=== PATIENT | male | born 1985 | race Two or more races ===

== ENCOUNTER 2017-03-12 00:25 | Emergency (ER) | payer OTHER ==
[~2017-03-12] VITALS: Ht 172.7 cm; Wt 81.3 kg
[2017-03-12 01:30] LABS: HEMATOCRIT 43.7 % (39.2-51.8); HEMOGLOBIN 14.6 g/dL (13.7-18.0); WHITE BLOOD COUNT 6.3 x10^3/uL (3.4-10)
[2017-03-12 01:41] LABS: ASPARTATE AMINO TRANSFERASE 17 U/L (15-37); BLOOD UREA NITROGEN 20 mg/dL (7-18)
[2017-03-12 01:58] LABS: IS PT STATUS REG ER OR PRE ER? YES
[2017-03-12] MEDS ORDERED: POTASSIUM CHLORIDE 20 MEQ TAB.ER.PRT PO ONE (02:30)
[2017-03-12] MEDS ORDERED: POTASSIUM CHLORIDE 10% 20 MEQ/15 ML UDC ONE (02:32)
[2017-03-12] MEDS ORDERED: POTASSIUM CHLORIDE 20 MEQ TAB.ER.PRT ONE (02:33)
[2017-03-12] MEDS ORDERED: MAALOX/HYOSCYAMINE/LIDOCAINE 45 ML BTL PO ONE (03:00)
[2017-03-12] MEDS ORDERED: OMNIPAQUE 350 MG/ML, 100ML BOTTLE ONE (04:23)
[2017-03-12 05:02] VITALS: BP 109/68
== END 2017-03-12 05:07 | disposition home or self-care (01) ==
LOC: ED 05:01
DX: R07.89 Other chest pain (principal)
CPT/HCPCS: 36415; 71010; 71260; 80053; 83735; 84484; 85025; 93005; 99285; Q9967

== ENCOUNTER → 2017-03-21 | Outpatient (CLI) | payer OTHER | END | disposition home or self-care (01) | LOC: CFH 14:58 → EDSTATUS 15:00 | PROVIDERS: ATTEND Internal Medicine Cardiovascular Disease | DX: I07.1 Rheumatic tricuspid insufficiency (principal); K21.9 Gastro-esophageal reflux disease without esophagitis | CPT/HCPCS: 93306 ==

== ENCOUNTER 2020-12-17 13:32 | Observation (INO) | payer OTHER ==
[~2020-12-17] VITALS: Ht 172.7 cm; Wt 78.2 kg
--- NOTE | 2020-12-17 13:57 | NUR ---
PT AMBULATED TO ROOM FROM TRIAGE. PT HAD MN WITH STENT PLACEMENT IN JULY. PT CO INTERMITTENT BURNING CP STARTING THIS MORNING. PT STATED THAT HE HAS BEEN TAKING HIS MEDICATIONS PRESCRIBED. TOOK 81MG ASA AND ANTIPLATELET MEDICATION THIS MORNING. PT DENIES SOB, N/V OR FEVER.
[2020-12-17 14:30] LABS: BASOPHILS % (AUTO) 0 % (0-1); EOSINOPHILS % (AUTO) 0 % (1-7); LYMPHOCYTES % (AUTO) 17 % (22-44); MEAN CORPUSCULAR HEMOGLOBIN 29.3 pg (27.5-34.5); MEAN CORPUSCULAR HGB CONC 34.2 g/dL (33.2-36.2); MEAN PLATELET VOLUME 7.9 fL (7.4-10.4); MONOCYTES % (AUTO) 5 % (2-9); NEUTROPHILS % (AUTO) 77 % (42-75); PLATELET COUNT 245 x10^3/uL (130-400); RED BLOOD COUNT 5.03 x10^6/uL (4.38-5.82); RED CELL DISTRIBUTION WIDTH 12.5 % (9.4-14.8)
[2020-12-17] MEDS ORDERED: ASPIRIN 81 MG TABLET CHEW PO ONE (14:30)
[2020-12-17] MEDS ORDERED: SODIUM CHLORIDE FLUSH 10ML SYR IVF ONE (14:30)
[2020-12-17 14:34] LABS: MD NO
[2020-12-17] MEDS ORDERED: ASPIRIN 81 MG TABLET CHEW ONE (14:36)
[2020-12-17 14:41] LABS: ALANINE AMINOTRANSFERASE 43 U/L (12-78); ANION GAP 6 mmol/L (5-15); CALCIUM 8.8 mg/dL (8.5-10.1); CHLORIDE 107 mmol/L (98-107); CREATININE 1.22 mg/dL (0.7-1.3)
[2020-12-17 14:45] LABS: ALKALINE PHOSPHATASE 90 U/L (45-117); TOTAL PROTEIN 7.3 g/dL (6.4-8.2); TROPONIN I < 0.015 ng/mL (0.000-0.045)
--- NOTE | 2020-12-17 15:00 | NUR ---
PT RESTING IN [place] COMFORT[place]. PT DENIES ANY CP AT THIS TIME. CALL LIGHT WITHIN REACH
--- NOTE | 2020-12-17 15:46 | NUR ---
PT RESTING IN [place] COMFORTABLY. CALL LIGHT WITHIN REACH.
[2020-12-17] MEDS ORDERED: BACLOFEN 10 MG TABLET PO PRN (16:30)
[2020-12-17] MEDS ORDERED: SODIUM CHLORIDE FLUSH 10ML SYR IVF PRN (16:30)
[2020-12-17] MEDS ORDERED: GUAIFENESIN/DM 200-20MG, 10ML UDC PO PRN (16:30)
[2020-12-17] MEDS ORDERED: ONDANSETRON ODT 4 MG PO PRN (16:30)
[2020-12-17] MEDS ORDERED: ONDANSETRON 2MG/ML, 2ML IVPush PRN (16:30)
--- NOTE | 2020-12-17 16:44 | NUR ---
PT AMBULATED TO RESTROOM. AWAITNG BED ASSIGNMENT. PT DENIES ANY PAIN.
--- NOTE | 2020-12-17 17:10 | NUR ---
attempt for report x1 rn unavailable
[2020-12-17 18:34] VITALS: BP 123/81
[2020-12-17] MEDS ORDERED: ASPI-1027 PO (20:03)
[2020-12-17] MEDS ORDERED: PRAS10TA9 PO (20:03)
[2020-12-17] MEDS ORDERED: ROSU5TAB12 PO (20:03)
[2020-12-17] MEDS ORDERED: METO-264 PO (20:03)
[2020-12-17 20:46] LABS: TROPONIN I < 0.015 ng/mL (0.000-0.045)
[2020-12-17] MEDS ORDERED: MELATONIN 5 MG TABLET PO SCH (21:00)
[2020-12-18 02:08] LABS: BASOPHILS % (AUTO) 0 % (0-1); EOSINOPHILS % (AUTO) 1 % (1-7); LYMPHOCYTES % (AUTO) 42 % (22-44); MEAN CORPUSCULAR HEMOGLOBIN 29.5 pg (27.5-34.5); MEAN CORPUSCULAR HGB CONC 34.1 g/dL (33.2-36.2); MONOCYTES % (AUTO) 6 % (2-9); NEUTROPHILS % (AUTO) 50 % (42-75); PLATELET COUNT 237 x10^3/uL (130-400); RED BLOOD COUNT 4.93 x10^6/uL (4.38-5.82); RED CELL DISTRIBUTION WIDTH 12.6 % (9.4-14.8)
[2020-12-18 02:13] LABS: MD NO
[2020-12-18 02:17] LABS: ALANINE AMINOTRANSFERASE 40 U/L (12-78); ALBUMIN 3.9 g/dL (3.4-5.0); ANION GAP 5 mmol/L (5-15); CALCIUM 9.1 mg/dL (8.5-10.1); CHLORIDE 107 mmol/L (98-107)
[2020-12-18 02:20] LABS: ALKALINE PHOSPHATASE 88 U/L (45-117); BILIRUBIN,TOTAL 2.2 mg/dL (0.2-1.0); TOTAL PROTEIN 7.1 g/dL (6.4-8.2)
[2020-12-18 02:21] LABS: TROPONIN I < 0.015 ng/mL (0.000-0.045)
[2020-12-18 03:35] VITALS: BP 115/61
[2020-12-18 06:57] VITALS: BP 113/73
[2020-12-18] MEDS ORDERED: SENNA/DOCUSATE TABLET PO SCH (09:00)
== END 2020-12-18 12:26 | disposition home or self-care (01) ==
LOC: ED 14:32 → EDIP 16:29 → INTOOBSV 16:29 → 5SO 17:48
PROVIDERS: ADMIT Family Medicine; ATTEND Internal Medicine
DX: R07.89 Other chest pain (principal); I25.110 Atherosclerotic heart disease of native coronary artery with unstable angina pectoris; I10 Essential (primary) hypertension; R73.9 Hyperglycemia, unspecified; E80.7 Disorder of bilirubin metabolism, unspecified; I25.2 Old myocardial infarction; I49.3 Ventricular premature depolarization; Z79.82 Long term (current) use of aspirin; Z79.890 Hormone replacement therapy; Z79.899 Other long term (current) drug therapy; Z95.5 Presence of coronary angioplasty implant and graft
CPT/HCPCS: 36415; 71045; 80053; 84484; 85025; 93005; 93017; 99285; G0378

== ENCOUNTER 2021-01-02 12:46 | Emergency (ER) | payer OTHER ==
[~2021-01-02] VITALS: Ht 172.7 cm; Wt 75.7 kg
[~2021-01-02 12:46] MED LIST: ASPI-1027 PO; METO-264 PO; PRAS10TA9 PO; ROSU5TAB12 PO
[2021-01-02 13:23] LABS: BASOPHILS % (AUTO) 0 % (0-1); EOSINOPHILS % (AUTO) 1 % (1-7); LYMPHOCYTES % (AUTO) 24 % (22-44); MEAN CORPUSCULAR HEMOGLOBIN 29.4 pg (27.5-34.5); MEAN CORPUSCULAR HGB CONC 33.9 g/dL (33.2-36.2); MEAN PLATELET VOLUME 7.9 fL (7.4-10.4); MONOCYTES % (AUTO) 5 % (2-9); NEUTROPHILS % (AUTO) 70 % (42-75); PLATELET COUNT 280 x10^3/uL (130-400); RED BLOOD COUNT 5.45 x10^6/uL (4.38-5.82)
[2021-01-02 13:34] LABS: ALANINE AMINOTRANSFERASE 55 U/L (12-78); ALBUMIN 4.4 g/dL (3.4-5.0); ANION GAP 7 mmol/L (5-15); CALCIUM 9.1 mg/dL (8.5-10.1); CHLORIDE 107 mmol/L (98-107); CREATININE 1.17 mg/dL (0.7-1.3)
[2021-01-02 13:45] LABS: ALKALINE PHOSPHATASE 91 U/L (45-117); TOTAL PROTEIN 8.1 g/dL (6.4-8.2); TROPONIN I < 0.015 ng/mL (0.000-0.045)
--- NOTE | 2021-01-02 14:04 | NUR ---
[facility] CLERK: PT TO ROOM FROM LOBBY
--- NOTE | 2021-01-02 14:19 | NUR ---
ERMD AT BEDSIDE FOR EVALUATION.
[2021-01-02 15:30] VITALS: BP 117/56
--- NOTE | 2021-01-02 15:44 | NUR ---
Patient given discharge instructions and they have confirmed that they understand the instructions. Patient ambulatory with steady gait. NAD, all questions answered appropriately, denies additional needs at this time. No personal belongings left in room after discharge.
== END 2021-01-02 15:45 | disposition home or self-care (01) ==
LOC: ED 14:09
DX: R42 Dizziness and giddiness (principal); R53.83 Other fatigue; F51.01 Primary insomnia; E86.0 Dehydration; R07.9 Chest pain, unspecified; R94.31 Abnormal electrocardiogram [ECG] [EKG]; I10 Essential (primary) hypertension; I25.2 Old myocardial infarction
CPT/HCPCS: 36415; 71045; 80053; 83690; 84443; 84484; 85025; 93005; 99285

== ENCOUNTER 2021-04-15 07:12 | Outpatient (CLI) | payer OTHER ==
[2021-04-15 07:54] LABS: BASOPHILS % (AUTO) 1 % (0-1); EOSINOPHILS % (AUTO) 2 % (1-7); LYMPHOCYTES % (AUTO) 38 % (22-44); MEAN CORPUSCULAR HEMOGLOBIN 29.2 pg (27.5-34.5); MEAN CORPUSCULAR HGB CONC 33.9 g/dL (33.2-36.2); MEAN PLATELET VOLUME 7.7 fL (7.4-10.4); MONOCYTES % (AUTO) 8 % (2-9); NEUTROPHILS % (AUTO) 53 % (42-75); PLATELET COUNT 280 x10^3/uL (130-400); RED BLOOD COUNT 5.36 x10^6/uL (4.38-5.82); RED CELL DISTRIBUTION WIDTH 13.2 % (9.4-14.8)
[2021-04-15 08:04] LABS: CALCIUM 9.6 mg/dL (8.5-10.1)
[2021-04-15 08:07] LABS: ALBUMIN 4.2 g/dL (3.4-5.0); ANION GAP 6 mmol/L (5-15); CALCIUM 9.6 mg/dL (8.5-10.1); CHLORIDE 106 mmol/L (98-107)
[2021-04-15 08:13] LABS: CHOL/HDL RATIO 2.5; CHOLESTEROL, TOTAL 188 mg/dL (140-239); CREATININE 1.17 mg/dL (0.7-1.3); HDL CHOL % 39 % (26-37); HDL CHOLESTEROL (DIRECT) 74 mg/dL (40-60); LDL CHOLESTEROL,CALCULATED 93 mg/dL (54-169); LDL/HDL RATIO 1.3 (0.5-3.0); TRIGLYCERIDES 106 mg/dL (50-200); VLDL CHOLESTEROL 21 mg/dL (0-25)
[2021-04-15 08:49] LABS: MICROSCOPIC NOT IND
== END 2021-04-15 23:59 | disposition home or self-care (01) ==
LOC: LAB 07:12
PROVIDERS: ATTEND Internal Medicine Nephrology
DX: I25.10 Atherosclerotic heart disease of native coronary artery without angina pectoris (principal); N17.9 Acute kidney failure, unspecified; Z79.899 Other long term (current) drug therapy
CPT/HCPCS: 36415; 80061; 80069; 81003; 82043; 82306; 82310; 82436; 82570; 82610; 83735; 83970; 84133; 84156; 84550; 85025